=== PATIENT | male | born 1985 | race Caucasian/White ===

== ENCOUNTER 2016-02-27 18:02 | Emergency (ER) ==
[2016-02-27] MEDS ORDERED: XYLOCAINE-MPF 1% INJ ONE (18:28)
[2016-02-27] MEDS ORDERED: DIPHTHERIA/TETANUS ADULT IM ONE (18:28)
--- NOTE | 2016-02-27 19:17 | PROVIDER DOCUMENTATION ---
HPI-Rash/Wound/ReCheck - General Chief Complaint: Extremity Injury Stated Complaint: LAC TO LT HAND FINGER Time Seen by Provider: 02/27/16 18:21 Source: patient Allergies/Adverse Reactions: Allergies Allergy/AdvReac Type Severity Reaction Status Date / Time No Known Allergies Allergy Verified 02/27/16 18:36 - History of Present Illness-Dermatology Nature of Presenting Problem: Pt presents today c complaints of laceration to the left digit after a drill bit went to far and caught his finger. Minimal bleeding. no loss of motor function or sensation. Location: reports: hands Quality: reports: painful Severity: reports: moderate Onset/Duration: reports: just prior to arrival Timing: reports: still present Context/Associated Symptoms: reports: laceration Identifiable cause?: Yes Locality of Occurance: Home Similar Symptoms Previously?: No Recently seen or treated by another doctor?: No Review of Systems - Adult - REVIEW OF SYSTEMS - ADULT Constitutional: reports: no symptoms reported. denies: chills, fatique Eyes: reports: no symptoms reported. denies: discharge, dry eyes Ears, Nose, Mouth & Throat: reports: no symptoms reported. denies: ear discharge, ear pain Cardiovascular: reports: no symptoms reported. denies: chest pain, edema Respiratory: reports: no symptoms reported. denies: chronic cough, cough Gastrointestinal: reports: no symptoms reported. denies: abdominal pain, hematemesis Genitourinary: reports: no symptoms reported. denies: dysuria, discharge Musculoskeletal: reports: no symptoms reported. denies: bone pain, back pain Integumentary: reports: see HPI. denies: mole changes, nail changes Neurological: reports: no symptoms reported. denies: ataxia, dizziness/vertigo Psychiatric: reports: no symptoms reported. denies: anxiety, anti-depressant use Endocrine: reports: no symptoms reported Hematologic/Lymphatic: reports: no symptoms reported Allergic/Immunologic: reports: no symptoms reported All Other Systems: Reviewed and Negative Past History - Adult - PAST MEDICAL HISTORY-ADULT Review of Records: reports: Old Records Reviewed, Nursing Assessment Review, Medications Reviewed, Social history reviewed & non-contributory. Major Childhood Illnesses: reports: denies history Cardiovascular: reports: denies history Respiratory: reports: denies history Gastrointestinal: reports: denies history Obstetrical/Gynecological: reports: denies history Genitourinary: reports: denies history Musculoskeletal: reports: denies history Neurological: reports: denies history Psychiatric: reports: denies history Endocrine/Immune: reports: denies history Other Conditions: reports: denies history - PRIOR SURGERIES/PROCEDURES Surgical/Procedure History: reports: none - IMMUNIZATION STATUS Childhood Immunizations: See Nurse Assessment Flu Vaccine: NUTD - FAMILY HISTORY Family History: reviewed, not pertinent Physical Exam-General - PHYSICAL EXAM-ADULT Initial Vital Signs Reviewed: Yes - CONSTITUTIONAL General Appearance: appears well, alert, no apparent distress - EYES Eyes: PERRL/EOMI, pink conjunctivae - HEAD, EARS, NOSE, MOUTH & THROAT HENMT: normocephalic/atraumatic, moist mucous membranes, normal ENT inspection - NECK Neck: non-tender, full range of motion, normal inspection - RESPIRATORY Respiratory: chest non-tender, lungs clear, normal breath sounds - CARDIOVASCULAR Cardiovascular: normal peripheral pulses, regular rate, rhythm, no edema - GASTROINTESTINAL (ABDOMEN) Abdominal Exam: normal bowel sounds, non tender, soft - LYMPHATIC Lymphatic: no adenopathy - MUSCULOSKELETAL Back Exam: normal inspection, no CVA tenderness, no vertebral tenderness Extremity: normal range of motion, non-tender, normal gait - SKIN Integumentary: normal color, normal turgor, warm/dry, laceration(s) - NEUROLOGIC Neurologic: grossly normal, no motor/sensory deficits - PSYCHIATRIC Psych/Mental Status: normal mood/affect, normal thought content, normal thought process, oriented x 3 Progress - PLAN OF CARE/RESULTS Progress/Plan/Lab Results: Orders Category Date Time Status Suture Tray Set-Up DIRECTED Care 02/27/16 18:28 Active Diphtheria/Tetanus Adult Med 02/27/16 18:28 Discontinued 0.5 ml IM .ONCE ONE Lidocaine 1% Pf [Xylocaine-Mpf 1%] Med 02/27/16 18:28 Discontinued See Dose Instructions INJ NOW ONE Vital Signs Temp Pulse Resp BP Pulse Ox 02/27/16 18:12 97.9 F 80 18 158/95 100 No Known Allergies Allergy (Verified 02/27/16 18:36) Procedures - LACERATION/WOUND REPAIR/FB Left Finger Wound Length: 2cm Wound's Depth, Shape: superficial, irregular, flap, contused tissue Wound Explored/Foreign Body: clean Irrigated with Saline?: Yes Prepped with: Hibiclens, Kit Utilized, Sterile Drapes Applied Anesthetic: 1%, Lidocaine/Xylocaine Volume of Anesthetic (ml's): 6 Wound Debrided: minimal Wound Repaired with: Sutures Suture Size/Type: 4.0, Non-Absorbable, Nylon Number of Sutures: 6 Layer Closure?: No Sterile Dressing Applied?: Yes Splint Applied?: No Sling Applied?: No Post Procedure Neurovascular Exam: Intact Procedure Comment: no complications - ADDITIONAL PROCEDURES Additional Procedure: Digital Nerve Block Time-Out Verification Completed?: Yes Site Prep: Kit Utilized, Hibiclens, Sterile Drapes Applied Anesthetic: 1%, Lidocaine/Xylocaine Volume of Anesthetic (ml's): 6 Procedure Comment: Successful Departure - Departure Time of Disposition Order: 19:16 DIAGNOSIS: Finger laceration Qualifiers: Encounter type: initial encounter Qualified Code(s): S61.219A - Laceration without foreign body of unspecified finger without damage to nail, initial encounter Disposition: HOME 01 Certified Medical Emergency: Emergent Condition: Good Additional Instructions: Take medication as prescribed. Keep area clean and dry. Follow up with your primary care provider or the ER in 1 week for suture removal. ED Follow Up Instructions: You have been treated by a care provider in the Emergency Department. These instructions are being provided to you so you can have an understanding of how to care for yourself upon discharge. Upon discharge from the Emergency Department, you are responsible for making arrangements for follow-up care by a physician of your choice. Take all prescribed medications as directed. Return to the Emergency Department immediately for any new or worsening symptoms. You may call the Physician Referral phone number at [phone] to obtain a list of Physicians who are taking new patients. Prescriptions: Cephalexin [Keflex] 500 mg PO Q6HR #28 capsule Ibuprofen [Motrin] 800 mg PO Q8H PRN PRN #20 tablet PRN Reason: inflammation Attestation - Physician/ Mid-level Attestation Patient care was provided by Mid-level provider (LICENSED STAFF MFT/PA):: Yes Mid-level provider:: Darion Martinez Mid-level documentation review:: The Mid-level provider documentation, treatment plan and medical decision making was reviewed by the physician who agrees with all treatment and medical decision making by the MLP.
[2016-02-27 19:35] VITALS: BP 139/70
== END 2016-02-27 20:04 | disposition home or self-care (01) ==
LOC: ED 18:02
DX: S61.219A Laceration without foreign body of unspecified finger without damage to nail, initial encounter (principal); W26.8XXA Contact with other sharp object(s), not elsewhere classified, initial encounter; Z23 Encounter for immunization
CPT/HCPCS: 90471; 90714